=== PATIENT | male | born 1960 | race Caucasian/White ===

== ENCOUNTER 2017-03-21 20:20 | Observation (INO) | payer SELFPAY ==
[2017-03-21] MEDS ORDERED: NITROGLYCERIN OINT 1 INCH/GM PACKET TOPICAL STA (20:40)
[2017-03-21] MEDS ORDERED: ASPIRIN 81 MG PO STA (20:40)
--- NOTE | 2017-03-21 20:43 | ED ---
General Adult HPI - General Source: patient, RN notes reviewed Mode of arrival: wheelchair Limitations: no limitations <Robb Valdivia - Last Filed: 03/21/17 20:54> <Robb Arthur - Last Filed: 03/21/17 23:39> - General Chief complaint: Chest Pain Stated complaint: chest & arm pain Time Seen by Provider: 03/21/17 20:20 - History of Present Illness Initial comments: This a 56-year-old male who has a past medical history significant for smoking. Patient does not have any history of diabetes high cholesterol or high blood pressure however the patient never go see a physician. Patient comes in today because he started having chest pain this morning at 8:00 is been intermittent ever signs per patient states the pain radiates into his left arm. Patient states he's had some shortness of breath but there has been no sweating no nausea. 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 Patient states currently the pain is only very minimal. Patient denies any lightheadedness dizziness or near syncopal episode. Patient denied any palpitations. Patient denied abdominal pain patient denies nausea vomiting diarrhea. Patient denies any recent history of fever chills or cough. Patient denied any leg swelling or calf pain. (Robb Valdivia) - Related Data Home Medications Medication Instructions Recorded Confirmed Acetaminophen-Codeine 300-30mg 1 tab PO HS 03/21/17 03/21/17 [Tylenol #3] Vit C/E/Zn/Coppr/Lutein/Zeaxan 1 cap PO HS 03/21/17 03/21/17 [Preservision Areds 2 Softgel] Allergies Allergy/AdvReac Type Severity Reaction Status Date / Time No Known Allergies Allergy Verified 03/21/17 20:49 Review of Systems ROS Other: All systems not noted in ROS Statement are negative. <Robb Valdivia - Last Filed: 03/21/17 20:54> ROS Other: All systems not noted in ROS Statement are negative. <Robb Arthur - Last Filed: 03/21/17 23:39> ROS Statement: Those systems with pertinent positive or pertinent negative responses have been documented in the HPI. Past Medical History Past Medical History: No Reported History History of Any Multi-Drug Resistant Organisms: None Reported Past Surgical History: Orthopedic Surgery Past Psychological History: No Psychological Hx Reported Smoking Status: Current every day smoker Past Alcohol Use History: None Reported Past Drug Use History: None Reported <Robb Valdivia - Last Filed: 03/21/17 20:54> General Exam Limitations: no limitations <Robb Valdivia - Last Filed: 03/21/17 20:54> General appearance: alert, in no apparent distress Head exam: Present: atraumatic, normocephalic, normal inspection Eye exam: Present: normal appearance, PERRL, EOMI. Absent: scleral icterus, conjunctival injection, periorbital swelling ENT exam: Present: normal exam, mucous membranes moist Neck exam: Present: normal inspection. Absent: tenderness, meningismus, lymphadenopathy Respiratory exam: Present: normal lung sounds bilaterally. Absent: respiratory distress, wheezes, rales, rhonchi, stridor Cardiovascular Exam: Present: regular rate, normal rhythm, normal heart sounds. Absent: systolic murmur, diastolic murmur, rubs, gallop, clicks GI/Abdominal exam: Present: soft, normal bowel sounds. Absent: distended, tenderness, guarding, rebound, rigid Extremities exam: Present: normal inspection, full ROM, normal capillary refill. Absent: tenderness, pedal edema, joint swelling, calf tenderness Back exam: Present: normal inspection Neurological exam: Present: alert, oriented X3, CN II-XII intact Psychiatric exam: Present: normal affect, normal mood Skin exam: Present: warm, dry, intact, normal color. Absent: rash <Robb Arthur - Last Filed: 03/21/17 23:39> - General Exam Comments Initial Comments: GENERAL: Patient is well-developed and well-nourished. Patient is nontoxic and well- hydrated and is in mild distress. ENT: Neck is soft and supple. No significant lymphadenopathy is noted. Oropharynx is clear. Moist mucous membranes. Neck has full range of motion without eliciting any pain. EYES: The sclera were anicteric and conjunctiva were pink and moist. Extraocular movements were intact and pupils were equal round and reactive to light. Eyelids were unremarkable. PULMONARY: Unlabored respirations. Good breath sounds bilaterally. No audible rales rhonchi or wheezing was noted. CARDIOVASCULAR: There is a regular rate and rhythm without any murmurs gallops or rubs. ABDOMEN: Soft and nontender with normal bowel sounds. No palpable organomegaly was noted. There is no palpable pulsatile mass. SKIN: Skin is clear with no lesions or rashes and otherwise unremarkable. NEUROLOGIC: Patient is alert and oriented x3. Cranial nerves II through XII are grossly intact. Motor and sensory are also intact. Normal speech, volume and content. Symmetrical smile. MUSCULOSKELETAL: Normal extremities with adequate strength and full range of motion. No lower extremity swelling or edema. No calf tenderness. LYMPHATICS: No significant lymphadenopathy is noted PSYCHIATRIC: Normal psychiatric evaluation. Normal interpersonal interactions appears functionally intact in deals appropriately with others. No signs of depression. No signs of anxiety. (Robb Valdivia) Course <Robb Valdivia - Last Filed: 03/21/17 20:54> <Robb Arthur - Last Filed: 03/21/17 23:39> Vital Signs 03/21/17 03/21/17 03/21/17 20:22 21:04 23:02 Temperature 98.5 F Pulse Rate 86 60 57 L Respiratory 20 18 16 Rate Blood Pressure 138/93 149/86 109/77 O2 Sat by Pulse 93 L 96 98 Oximetry - Reevaluation(s) Reevaluation #1: 03/21/17 23:38 Patient still with episodic chest at this time although much better than when he arrived in emergency room (Robb Arthur) Medical Decision Making <Robb Valdviia - Last Filed: 03/21/17 20:54> - Lab Data Result diagrams: 03/21/17 20:49 03/21/17 20:49 - Radiology Data Radiology results: report reviewed (Chest x-ray is negative for acute disease), image reviewed <Robb Arthur - Last Filed: 03/21/17 23:39> - Medical Decision Making EKG shows normal sinus rhythm at 67 bpm DE interval is on a 36 QRS is 88 QT interval 42 QTC is 424. Patient's EKG shows no ST segment elevation or depression or T wave normalities are noted Dr. Arthur will be taking over the care of this patient at 9 PM (Robb Valdivia) 56 male to ER for evaluation. Patient does today for evaluation regarding chest pain. Patient has been continued episodic chest pain here now. Patient be admitted for cardiac observation and anticoagulation Ceil troponins (Robb Arthur) - Lab Data Lab Results 03/21/17 03/21/17 03/21/17 Range/Units 20:49 20:49 20:49 WBC 7.5 (3.8-10.6) k/uL RBC 4.53 (4.30-5.90) m/uL Hgb 13.3 (13.0-17.5) gm/dL Hct 40.6 (39.0-53.0) % MCV 89.5 (80.0-100.0) fL MCH 29.3 (25.0-35.0) pg MCHC 32.7 (31.0-37.0) g/dL RDW 13.7 (11.5-15.5) % Plt Count 255 (150-450) k/uL Neutrophils % 62 % Lymphocytes % 29 % Monocytes % 6 % Eosinophils % 2 % Basophils % 0 % Neutrophils # 4.7 (1.3-7.7) k/uL Lymphocytes # 2.2 (1.0-4.8) k/uL Monocytes # 0.4 (0-1.0) k/uL Eosinophils # 0.1 (0-0.7) k/uL Basophils # 0.0 (0-0.2) k/uL PT (9.0-12.0) sec INR (<1.2) APTT (22.0-30.0) sec Sodium 137 (137-145) mmol/L Potassium 4.2 (3.5-5.1) mmol/L Chloride 103 (98-107) mmol/L Carbon Dioxide 24 (22-30) mmol/L Anion Gap 10 mmol/L BUN 17 (9-20) mg/dL Creatinine 0.90 (0.66-1.25) mg/dL Est GFR (MDRD) Af Amer >60 (>60 ml/min/1.73 sqM) Est GFR (MDRD) Non-Af >60 (>60 ml/min/1.73 sqM) Glucose 85 (74-99) mg/dL Calcium 9.4 (8.4-10.2) mg/dL Magnesium 2.2 (1.6-2.3) mg/dL Total Bilirubin 0.6 (0.2-1.3) mg/dL AST 26 (17-59) U/L ALT 33 (21-72) U/L Alkaline Phosphatase 71 (38-126) U/L Total Creatine Kinase 284 H (55-170) U/L CK-MB (CK-2) 4.7 H* (0.0-2.4) ng/mL CK-MB (CK-2) Rel Index 1.7 Troponin I <0.012 (0.000-0.034) ng/mL Total Protein 7.1 (6.3-8.2) g/dL Albumin 4.3 (3.5-5.0) g/dL 03/21/17 Range/Units 20:49 WBC (3.8-10.6) k/uL RBC (4.30-5.90) m/uL Hgb (13.0-17.5) gm/dL Hct (39.0-53.0) % MCV (80.0-100.0) fL MCH (25.0-35.0) pg MCHC (31.0-37.0) g/dL RDW (11.5-15.5) % Plt Count (150-450) k/uL Neutrophils % % Lymphocytes % % Monocytes % % Eosinophils % % Basophils % % Neutrophils # (1.3-7.7) k/uL Lymphocytes # (1.0-4.8) k/uL Monocytes # (0-1.0) k/uL Eosinophils # (0-0.7) k/uL Basophils # (0-0.2) k/uL PT 10.6 (9.0-12.0) sec INR 1.1 (<1.2) APTT 24.7 (22.0-30.0) sec Sodium (137-145) mmol/L Potassium (3.5-5.1) mmol/L Chloride (98-107) mmol/L Carbon Dioxide (22-30) mmol/L Anion Gap mmol/L BUN (9-20) mg/dL Creatinine (0.66-1.25) mg/dL Est GFR (MDRD) Af Amer (>60 ml/min/1.73 sqM) Est GFR (MDRD) Non-Af (>60 ml/min/1.73 sqM) Glucose (74-99) mg/dL Calcium (8.4-10.2) mg/dL Magnesium (1.6-2.3) mg/dL Total Bilirubin (0.2-1.3) mg/dL AST (17-59) U/L ALT (21-72) U/L Alkaline Phosphatase (38-126) U/L Total Creatine Kinase (55-170) U/L CK-MB (CK-2) (0.0-2.4) ng/mL CK-MB (CK-2) Rel Index Troponin I (0.000-0.034) ng/mL Total Protein (6.3-8.2) g/dL Albumin (3.5-5.0) g/dL Critical Care Time Critical Care Time: Yes Total Critical Care Time: 31 <Robb Arthur - Last Filed: 03/21/17 23:39> Disposition <Robb Valdivia - Last Filed: 03/21/17 20:54> <Robb Arthur - Last Filed: 03/21/17 23:39> Clinical Impression: Chest pain Disposition: ADMITTED IP TO THIS HOSP Condition: Undetermined Instructions: Chest Pain (ED) Referrals: None,Stated [Primary Care Provider] - 1-2 days
[2017-03-21 21:03] LABS: Basophils % (A) 0 %; CH 30.5; CHCM 34.3; Eosinophils # (A) 0.1 k/uL (0-0.7); Eosinophils % (A) 2 %; HCT 40.6 % (39.0-53.0); HDW 2.33; HGB 13.3 gm/dL (13.0-17.5); INR 1.1 (<1.2); Luc # (Auto) 0.15; Luc % (Auto) 2; Lymphocytes # (A) 2.2 k/uL (1.0-4.8); Lymphocytes % (A) 29 %; MCH 29.3 pg (25.0-35.0); MCHC 32.7 g/dL (31.0-37.0); MCV 89.5 fL (80.0-100.0); Monocytes # (A) 0.4 k/uL (0-1.0); Monocytes % (A) 6 %; Neutrophils # (A) 4.7 k/uL (1.3-7.7); Neutrophils % (A) 62 %; Partial Thromboplastin Time 24.7 sec (22.0-30.0); Prothrombin Time 10.6 sec (9.0-12.0); RBC 4.53 m/uL (4.30-5.90); RDW 13.7 % (11.5-15.5); WBC 7.5 k/uL (3.8-10.6); WBC (Perox) 7.24
[2017-03-21 21:11] LABS: ALT 33 U/L (21-72); AST 26 U/L (17-59); Alkaline Phosphatase 71 U/L (38-126); Anion Gap 10 mmol/L; Blood Urea Nitrogen 17 mg/dL (9-20); Calcium 9.4 mg/dL (8.4-10.2); Carbon Dioxide 24 mmol/L (22-30); Chloride 103 mmol/L (98-107); Glucose 85 mg/dL (74-99); Magnesium 2.2 mg/dL (1.6-2.3); Non-African American GFR(MDRD) >60 (>60 ml/min/1.73 sqM); Potassium 4.2 mmol/L (3.5-5.1); Sodium 137 mmol/L (137-145); Total Bilirubin 0.6 mg/dL (0.2-1.3); Total Protein 7.1 g/dL (6.3-8.2)
--- NOTE | 2017-03-21 21:13 | XR ---
EXAMINATION TYPE: XR chest 2V DATE OF EXAM: 03/21/2017 COMPARISON: NONE HISTORY: Chest pain TECHNIQUE: Frontal and lateral views of the chest are obtained. FINDINGS: Heart and mediastinum are normal. Lungs are clear. Diaphragm is normal. There is spurring in the thoracic spine. Bony thorax is intact. There is no pleural effusion. There are chest leads. IMPRESSION: No active cardiopulmonary disease.
[2017-03-21 21:14] LABS: Creatine Kinase 284 U/L (55-170)
[2017-03-21 21:27] LABS: Troponin I <0.012 ng/mL (0.000-0.034)
[2017-03-21 21:29] LABS: Creatine Kinase MB 4.7 ng/mL (0.0-2.4)
[2017-03-21] MEDS ORDERED: MORPHINE SULFATE 10 MG/ML SYRINGE IV PRN (23:34)
[2017-03-21] MEDS ORDERED: HEPARIN SODIUM,PORCINE 5,000 UNIT/ML 1 ML VIAL IV PRN (23:34)
[2017-03-21] MEDS ORDERED: NITROGLYCERIN SL TABS 0.4 MG TAB SUBLINGUAL PRN (23:34)
[2017-03-21] MEDS ORDERED: HEPARIN SODIUM,PORCINE 5,000 UNIT/ML 1 ML VIAL IV ONE (23:34)
[2017-03-21] MEDS ORDERED: HEPARIN SODIUM,PORCINE/D5W PMX 25,000 UNIT in DEXTROSE/WATER 1 500ML.BAG IV SCH (23:45)
[2017-03-22 00:32] VITALS: BMI 25.7
[2017-03-22] MEDS ORDERED: NALOXONE 0.4 MG/ML 1 ML VIAL IV PRN (02:00)
[2017-03-22] MEDS ORDERED: ACETAMINOPHEN TAB 325 MG TAB PO PRN (02:00)
[2017-03-22] MEDS ORDERED: MORPHINE SULFATE 2 MG/ML SYRINGE IV PRN (02:00)
[2017-03-22 02:16] LABS: Creatine Kinase 259 U/L (55-170)
--- NOTE | 2017-03-22 02:16 | P.HPIM ---
History of Present Illness H&P Date: 03/22/17 Chief Complaint: Chest pain 56-year-old male with no significant past medical history presented to emergency department because of intermittent recurrent chest pain that has been happening all day today while he was at work. The pain felt like a sharp pain, located in the middle of the chest, lasting for a few seconds and resolving spontaneously. Patient works in construction smoothing tiles. He denies having any recent illness, no flulike symptoms. The pain is only associated with palpitations, no shortness of breath, no dizziness, no headaches, no radiation of the pain anywhere, no diaphoresis, no nausea or vomiting. Patient never had this type of pain in the past and was concerned about it so he presented to the emergency department. In the ER he did not have acute ST or acute changes and his troponins were negative. Subsequently he was admitted to observation for further evaluation and management. Review of Systems 12 points ROS performed, negative except for HPI Past Medical History Past Medical History: No Reported History, Osteoarthritis (OA) Additional Past Medical History / Comment(s): Chronic bilateral knees pain History of Any Multi-Drug Resistant Organisms: None Reported Past Surgical History: Orthopedic Surgery Additional Past Surgical History / Comment(s): edwina knee ACL and edwina rotator cuffs Past Anesthesia/Blood Transfusion Reactions: No Reported Reaction Past Psychological History: No Psychological Hx Reported Smoking Status: Current every day smoker Past Alcohol Use History: None Reported Past Drug Use History: None Reported - Past Family History Father Family Medical History: Cancer Additional Family Medical History / Comment(s): passed in his 30's Mother Family Medical History: Cancer, CVA/TIA Medications and Allergies Home Medications Medication Instructions Recorded Confirmed Type Acetaminophen-Codeine 300-30mg 1 tab PO HS 03/21/17 03/21/17 History [Tylenol #3] Vit C/E/Zn/Coppr/Lutein/Zeaxan 1 cap PO HS 03/21/17 03/21/17 History [Preservision Areds 2 Softgel] Allergies Allergy/AdvReac Type Severity Reaction Status Date / Time No Known Allergies Allergy Verified 03/21/17 20:49 Physical Exam Vitals: Vital Signs Temp Pulse Pulse Resp BP BP Pulse Ox 03/22/17 00:15 98.2 F 59 L 16 96/54 96 03/22/17 00:02 98.0 F 62 18 125/75 98 03/21/17 23:02 57 L 16 109/77 98 03/21/17 21:04 60 18 149/86 96 03/21/17 20:22 98.5 F 86 20 138/93 93 L Intake and Output 03/21/17 03/21/17 03/22/17 14:59 22:59 06:59 Other: Voiding Method Toilet # Voids 2 Weight 78.925 kg 78.925 kg Patient Weight 03/22/17 06:59 Weight 78.925 kg Constitutional: No acute distress, conversant, pleasant Eyes:Anicteric sclerae, moist conjunctiva, no lid-lag, PERRLA, ENMT: Oropharynx clear, no erythema, exudates Neck: Supple, FROM, no masses, or JVD, No carotid bruits, No thyromegaly Lungs: Clear to auscultation, Clear to percussion, Normal respiratory effort, no accessory muscle use Cardiovascular: Heart regular in rate and rhythm, No murmurs, gallops, or rubs, No peripheral edema Abdominal: Soft, Nontender, no guarding, rebound or rigidity, Normoactive bowel sounds, No hepatomegaly, No splenomegaly, No palpable mass Skin: Normal temperature, tone, texture, turgor, no induration, No subcutaneous nodules, No rash, lesions, No ulcers Extremities: No digital cyanosis, No clubbing, Pedal pulses intact and symmetrical, Radial pulses intact and symmetrical, No calf tenderness Psychiatric: Alert and oriented to person, place and time, appropriate affect, intact judgement Neuro: Muscles Strength 5/5 in all 4 extremities, Sensation to light touch grossly present throughout, Cranial nerves II-XII grossly intact, no focal sensory deficits Results CBC & Chem 7: 03/21/17 20:49 03/21/17 20:49 Labs: Abnormal Lab Results - Last 24 Hours (Table) 03/21/17 Range/Units 20:49 Total Creatine Kinase 284 H (55-170) U/L CK-MB (CK-2) 4.7 H* (0.0-2.4) ng/mL Thrombosis Risk Factor Assmnt - Choose All That Apply Each Factor Represents 1 point: Age 41-60 years Thrombosis Risk Factor Assessment Total Risk Factor Score: 1 Thrombosis Risk Factor Assessment Level: Low Risk Assessment and Plan Plan: 1 acute chest pain Unclear etiology Cycle troponins Started on heparin by emergency department, will repeat stat troponin now and discontinue if negative Aspirin 325 mg daily Pravastatin 80 mg daily Stress test, dobutamine exercise stress in a.m. #2 chronic knee pain Continue Tylenol with Codeine. #3 DVT prophylaxis Patient is ambulatory, not indicated
[2017-03-22 02:29] LABS: Troponin I <0.012 ng/mL (0.000-0.034)
[2017-03-22 02:31] LABS: Creatine Kinase MB 4.4 ng/mL (0.0-2.4)
[2017-03-22 07:53] LABS: Basophils % (A) 1 %; CH 30.4; CHCM 33.7; Eosinophils # (A) 0.2 k/uL (0-0.7); Eosinophils % (A) 4 %; HCT 42.2 % (39.0-53.0); HDW 2.31; HGB 13.3 gm/dL (13.0-17.5); Luc # (Auto) 0.07; Luc % (Auto) 2; Lymphocytes # (A) 1.5 k/uL (1.0-4.8); Lymphocytes % (A) 34 %; MCH 28.7 pg (25.0-35.0); MCHC 31.6 g/dL (31.0-37.0); MCV 90.8 fL (80.0-100.0); Monocytes # (A) 0.3 k/uL (0-1.0); Monocytes % (A) 7 %; Neutrophils # (A) 2.3 k/uL (1.3-7.7); Neutrophils % (A) 53 %; RBC 4.65 m/uL (4.30-5.90); WBC 4.4 k/uL (3.8-10.6)
--- NOTE | 2017-03-22 08:02 | P.CRDCN ---
History of Present Illness Consult date: 03/22/17 Consult reason: chest pain History of present illness: 56-year-old gentleman with no significant past medical history who has had some chronic back pain and takes Tylenol No. 3 comes in complaining of chest pain he describes it as a sharp precordial pain that came on at rest unrelated to exertion and unassociated with diaphoresis. He also had vague left arm discomfort with that. This came at work her came to hospital and gradually the pain had subsided. There was no clear response to sublingual nitroglycerin. At the time of my evaluation this morning his pain-free and hemodynamically stable. I talked to him about his treatment options he opted to undergo a stress echo and if there is ischemia consider cardiac catheterization. Cardiac enzymes so far have been negative. Review of Systems Constitutional: Denies chills. Denies fever. Eyes: Denies blurred vision. Denies pain. Ears, nose, mouth and throat: Denies headache. Denies sore throat. Cardiovascular: has chest pain. Denies shortness of breath. Respiratory: Denies cough. Gastrointestinal: Denies abdominal pain. Denies diarrhea. Denies nausea. Denies vomiting. Musculoskeletal: Denies myalgias. Integumentary: Denies pruritus. Denies rash. Neurological: Denies numbness. Denies weakness. Psychiatric: Denies anxiety. Denies depression. Endocrine: Denies fatigue. Denies weight change. Genitourinary: Denies burning, hematuria, frequency of urination. Hematological: No anemia or excess bleeding. Past Medical History Past Medical History: No Reported History, Osteoarthritis (OA) Additional Past Medical History / Comment(s): Chronic bilateral knees pain History of Any Multi-Drug Resistant Organisms: None Reported Past Surgical History: Orthopedic Surgery Additional Past Surgical History / Comment(s): edwian knee ACL and edwina rotator cuffs Past Anesthesia/Blood Transfusion Reactions: No Reported Reaction Past Psychological History: No Psychological Hx Reported Smoking Status: Current every day smoker Past Alcohol Use History: None Reported Past Drug Use History: None Reported - Past Family History Father Family Medical History: Cancer Additional Family Medical History / Comment(s): passed in his 30's Mother Family Medical History: Cancer, CVA/TIA Medications and Allergies Home Medications Medication Instructions Recorded Confirmed Type Acetaminophen-Codeine 300-30mg 1 tab PO HS 03/21/17 03/21/17 History [Tylenol #3] Vit C/E/Zn/Coppr/Lutein/Zeaxan 1 cap PO HS 03/21/17 03/21/17 History [Preservision Areds 2 Softgel] Allergies Allergy/AdvReac Type Severity Reaction Status Date / Time No Known Allergies Allergy Verified 03/21/17 20:49 Physical Exam Vitals: Vital Signs Temp Pulse Pulse Resp BP BP Pulse Ox 03/22/17 04:00 98.4 F 50 L 16 119/63 96 03/22/17 00:15 98.2 F 59 L 16 96/54 96 03/22/17 00:02 98.0 F 62 18 125/75 98 03/21/17 23:02 57 L 16 109/77 98 03/21/17 21:04 60 18 149/86 96 03/21/17 20:22 98.5 F 86 20 138/93 93 L Intake and Output 03/21/17 03/22/17 03/22/17 22:59 06:59 14:59 Other: Voiding Method Toilet # Voids 3 Weight 78.925 kg 78.925 kg Results 03/22/17 07:33 03/21/17 20:49 Cardiac Enzymes 03/21/17 03/21/17 03/22/17 Range/Units 20:49 20:49 01:38 AST 26 (17-59) U/L CK-MB (CK-2) 4.7 H* 4.4 H* (0.0-2.4) ng/mL Troponin I <0.012 <0.012 (0.000-0.034) ng/mL Coagulation 03/21/17 Range/Units 20:49 PT 10.6 (9.0-12.0) sec APTT 24.7 (22.0-30.0) sec CBC 03/21/17 03/22/17 Range/Units 20:49 07:33 WBC 7.5 4.4 (3.8-10.6) k/uL RBC 4.53 4.65 (4.30-5.90) m/uL Hgb 13.3 13.3 (13.0-17.5) gm/dL Hct 40.6 42.2 (39.0-53.0) % Plt Count 255 261 (150-450) k/uL Comprehensive Metabolic Panel 03/21/17 Range/Units 20:49 Sodium 137 (137-145) mmol/L Potassium 4.2 (3.5-5.1) mmol/L Chloride 103 (98-107) mmol/L Carbon Dioxide 24 (22-30) mmol/L BUN 17 (9-20) mg/dL Creatinine 0.90 (0.66-1.25) mg/dL Glucose 85 (74-99) mg/dL Calcium 9.4 (8.4-10.2) mg/dL AST 26 (17-59) U/L ALT 33 (21-72) U/L Alkaline Phosphatase 71 (38-126) U/L Total Protein 7.1 (6.3-8.2) g/dL Albumin 4.3 (3.5-5.0) g/dL Current Medications Generic Name Dose Route Start Last Admin Trade Name Freq PRN Reason Stop Dose Admin Acetaminophen 650 mg 03/22/17 02:00 Tylenol Tab PO Q6HR PRN Mild Pain or Fever > 100.5 Aspirin 325 mg 03/22/17 09:00 Aspirin PO DAILY [facility] Atorvastatin Calcium 80 mg 03/22/17 09:00 Lipitor PO DAILY [facility] Morphine Sulfate 4 mg 03/21/17 23:34 Morphine Sulfate (Inj) IV Q5M PRN Chest Pain Morphine Sulfate 2 mg 03/22/17 02:00 Morphine Sulfate (Inj) IV Q4HR PRN Severe Pain Naloxone HCl 0.2 mg 03/22/17 02:00 Narcan IV Q2M PRN Opioid Reversal Nitroglycerin 0.4 mg 03/21/17 23:34 Nitrostat SUBLINGUAL Q5M PRN Chest Pain Intake and Output 03/21/17 03/22/17 03/22/17 22:59 06:59 14:59 Other: Voiding Method Toilet # Voids 3 Weight 78.925 kg 78.925 kg 03/22/17 07:33 03/21/17 20:49 EKG Interpretations (text) Normal sinus rhythm and within normal limits Assessment and Plan Plan: Chest pain rule out CAD Patient will undergo a stress echo today if this is abnormal I will do cardiac catheterization if not he'll be discharged home Chronic smoking I advised the patient to quit smoking
[2017-03-22 08:04] LABS: ALT 31 U/L (21-72); AST 23 U/L (17-59); Alkaline Phosphatase 62 U/L (38-126); Anion Gap 10 mmol/L; Blood Urea Nitrogen 16 mg/dL (9-20); Calcium 9.1 mg/dL (8.4-10.2); Carbon Dioxide 25 mmol/L (22-30); Chloride 105 mmol/L (98-107); Cholesterol 131 mg/dL (<200); Glucose 81 mg/dL (74-99); HDL Cholesterol 52 mg/dL (40-60); Non-African American GFR(MDRD) >60 (>60 ml/min/1.73 sqM); Potassium 4.5 mmol/L (3.5-5.1); Sodium 140 mmol/L (137-145); Total Bilirubin 0.6 mg/dL (0.2-1.3); Total Protein 6.6 g/dL (6.3-8.2)
[2017-03-22 08:17] LABS: Creatine Kinase 225 U/L (55-170)
[2017-03-22 08:29] VITALS: RESP 18; TEMP 97.8
[2017-03-22 08:31] LABS: Troponin I <0.012 ng/mL (0.000-0.034)
[2017-03-22 08:41] LABS: Creatine Kinase MB 3.7 ng/mL (0.0-2.4)
[2017-03-22] MEDS ORDERED: ATORVASTATIN 80 MG TAB PO SCH (09:00)
[2017-03-22] MEDS ORDERED: ASPIRIN 325 MG TAB PO SCH (09:00)
--- NOTE | 2017-03-22 09:08 | ECHOS ---
STRESS ECHOCARDIOGRAM INDICATIONS: Chest pain. MEDICATIONS:: Acetaminophen, vitamin E, C, Zinc, Copper, Lutein BASELINE HEART RATE: 56 BASELINE BLOOD PRESSURE: 111/68 MAXIMUM HEART RATE: 151 MAXIMUM BLOOD PRESSURE: 153/76 85% MPHR: 141 100% MPHR: 166 METS: 11.1 MAXIMUM STAGE REACHED: 4 TOTAL EXERCISE TIME: 9:42 CLINICAL INFORMATION: Baseline EKG shows sinus rhythm, normal axis, normal intervals. Patient exercised on Prateek protocol for a total of 9-1/2 minutes achieving 11 METS, 85% of predicted maximal heart rate without chest pain or diagnostic ST-segment depression. Baseline echo shows normal left ventricular size, wall motion and systolic function. Postexercise, there is normal hyperdynamic response of all segments of myocardium noted. CONCLUSION: 1. Excellent exercise tolerance. 2. Negative stress test by EKG criteria. 3. Negative stress echo. ARCELIA / ROSALINA: [id number] /
[2017-03-22 11:48] VITALS: BP 108/72; PULSE 55
--- NOTE | 2017-03-22 11:51 | P.DS ---
Providers Date of admission: 03/21/17 23:38 Expected date of discharge: 03/22/17 Attending physician: Rocky Lewis MD Consults: 03/21/17 23:34 Consult Physician Urgent Consulting Provider: Aimee Brunson Consult Reason/Comments: cp Do you want consulting provider notified?: Yes Primary care physician: Stated None - Discharge Diagnosis(es) (1) Chest pain Current Visit: Yes Status: Acute (2) Smoking Current Visit: Yes Status: Acute Hospital Course: The patient is a 56-year-old male with a past medical history of smoking that was admitted for chest pain to rule out acute coronary syndrome his initial EKG and serial troponins are negative for any acute ischemia, the patient only had mild risk factors being age and history of smoking. He was started on aspirin statin therapy and heparin from the ER. The patient had a stress echocardiogram that was otherwise unremarkable actually showed pretty good exercise tolerance. Cardiology has been consulted from the ER and was in agreement that the patient could be discharged home safely with a negative stress echocardiogram, patient had been counseled regarding his smoking cessation but does not appear ready to try at this time. He was subsequently discharged home in stable condition and instructed to follow-up with his PCP. This discharge process took less than 30 minutes Patient Condition at Discharge: Stable Plan - Discharge Summary New Discharge Prescriptions: No Action Vit C/E/Zn/Coppr/Lutein/Zeaxan [Preservision Areds 2 Softgel] 1 cap PO HS Acetaminophen-Codeine 300-30mg [Tylenol #3] 1 tab PO HS Discharge Medication List Acetaminophen-Codeine 300-30mg [Tylenol #3] 1 tab PO HS 03/21/17 [History] Vit C/E/Zn/Coppr/Lutein/Zeaxan [Preservision Areds 2 Softgel] 1 cap PO HS [History] Follow up Appointment(s)/Referral(s): None,Stated [Primary Care Provider] - 1-2 days Vahid Mishra MD [STAFF PHYSICIAN] - 04/11/17 3:30 pm Patient Instructions/Handouts: Chest Pain (ED) Discharge Disposition: HOME SELF-CARE
== END 2017-03-22 12:12 | disposition home or self-care (01) ==
LOC: EC 20:20 → 3OBS 23:38
PROVIDERS: ADMIT Internal Medicine; ATTEND Internal Medicine
DX: R07.89 Other chest pain (principal); R07.2 Precordial pain; R00.2 Palpitations; R06.02 Shortness of breath; M79.602 Pain in left arm; M25.561 Pain in right knee; M25.562 Pain in left knee; G89.29 Other chronic pain; M54.9 Dorsalgia, unspecified; M19.90 Unspecified osteoarthritis, unspecified site; F17.200 Nicotine dependence, unspecified, uncomplicated; Z79.891 Long term (current) use of opiate analgesic; Z79.899 Other long term (current) drug therapy; Z80.9 Family history of malignant neoplasm, unspecified
CPT/HCPCS: 99291; 96376 ×2; 96365; 96366; 36415; 93005; 93017; 93350; 80061; 80053 ×2; 82550 ×2; 82553 ×2; 83735; 84484 ×2; 85025 ×2; 85610; 85730; 71020; G0378 ×2; J1644 ×2

== ENCOUNTER → 2020-01-19 | Outpatient (CLI) | payer BC | END | disposition home or self-care (01) | LOC: LABPAT 10:06 | PROVIDERS: ATTEND Orthopaedic Surgery | DX: Z01.812 Encounter for preprocedural laboratory examination (principal) | CPT/HCPCS: 87070 ==

== ENCOUNTER 2020-01-25 10:49 | Day surgery (SDC) | payer BC ==
[2020-01-18 11:11] VITALS: BMI 26.6
[~2020-01-25 10:49] MED LIST: ACETAMINOPHEN TAB 500 MG TAB PO ONE; MELOXICAM 7.5 MG TAB PO ONE; MIDAZOLAM 2 MG/2 ML VIAL IV PRN; ONDANSETRON 4 MG/2 ML VIAL IVP ONE; ROPIVACAINE 246.25 MG, EPINEPHrine 0.5 MG, KETOROLAC 30 MG, cloNIDine HCL/PF 80 MCG, WA... MISCELLANE ONE; TRANEXAMIC ACID 1,000 MG in SODIUM CHLORIDE 0.9% 100 ML IVPB ONE
[2020-01-25] MEDS ORDERED: ONDANSETRON 4 MG/2 ML VIAL ONE (11:02)
[2020-01-25] MEDS ORDERED: ACETAMINOPHEN TAB 500 MG TAB ONE (11:02)
[2020-01-25] MEDS: LACTATED RINGERS 1,000 ML IV SCH ×2 (11:24→18:04)
[2020-01-25] MEDS ORDERED: LIDOCAINE 1% (10MG/ML) FOR IV START INTRADERMA ONE (11:25)
[2020-01-25] MEDS ORDERED: DEXAMETHASONE SOD PHOSPHATE 10 MG/ML 1 ML VIAL IV ONE (11:43)
[2020-01-25] MEDS: fentaNYL (PF) 50 MCG/ML 2 ML AMP IV ONE ×2 (11:44→15:42)
[2020-01-25] MEDS ORDERED: MIDAZOLAM 2 MG/2 ML VIAL IV ONE (11:44)
--- NOTE | 2020-01-25 12:09 | P.ANPRN ---
Procedure Note - Anesthesia - Nerve Block Performed Left Adductor Canal Infusion Time Out Performed: Yes Date of Procedure: 01/25/20 Procedure Start Time: 11:48 Procedure Stop Time: 11:56 Location of Patient: PreOp Indication: Acute Post-Operative Pain, Requested by Surgeon Specifically requested for management of pain by DrVitaliy: Sean Klein Sedation Type: Sedate with meaningful contact maintained Preparation: Sterile Prep Position: Supine Catheter: Indwelling Needle Types: Pajunk Needle Gauge: 18 Ultrasound used to visualize needle placement: Yes Ultrasound used to observe medication spread: Yes Injectate: 0.5% Ropivacaine (see comment for volume) (30cc) Blood Aspirated: No Pain Paresthesia on Injection Noted: No Resistance on Injection: Normal Image Stored and Saved: Yes Events: Uneventful and Well Tolerated
[2020-01-25] MEDS ORDERED: PROPOFOL 10 MG/ML 20 ML VIAL IV ONE (12:23)
[2020-01-25] MEDS ORDERED: SODIUM CHLORIDE 0.9% 100 ML BAG ONE (12:23)
[2020-01-25] MEDS ORDERED: TRANEXAMIC ACID 1,000 MG/10 ML VIAL ONE (12:23)
[2020-01-25] MEDS ORDERED: MIDAZOLAM 2 MG/2 ML VIAL ONE (12:23)
[2020-01-25] MEDS ORDERED: SUCCINYLCHOLINE CHLORIDE 100 MG/5 ML SYR IV ONE (12:23)
[2020-01-25] MEDS ORDERED: fentaNYL (PF) 50 MCG/ML 2 ML AMP ONE (12:23)
[2020-01-25] MEDS ORDERED: ceFAZolin 1,000 MG in SODIUM CHLORIDE 0.9% 1,000 ML IRRIGATION ONE (13:04)
[2020-01-25] MEDS ORDERED: LACTATED RINGERS 1,000 ML IV ONE ×2 (14:17→17:18)
--- NOTE | 2020-01-25 14:26 | P.OP ---
Date of Procedure: 01/25/20 Procedure(s) Performed: PREOPERATIVE DIAGNOSIS: 1. Left knee severe osteoarthritis with genu varum; 2. Status post remote ACL reconstruction with metallic screw fixation POSTOPERATIVE DIAGNOSIS: 1. Left knee severe osteoarthritis with genu varum; 2. Status post remote ACL reconstruction with metallic screw fixation OPERATION: 1. Left knee cemented total replacement arthroplasty (metal on polyethylene); 2. Removal tibial ACL interference screw. ANESTHESIA: Spinal ESTIMATED BLOOD LOSS: 50 ml. STRAPPING MACHINE TENDER: Cleo Winchester PA-C (assistance with: patient positioning, retraction, exposure, hemostasis, leg positioning, implantation, irrigation, closure, dressing) COMPLICATIONS: None apparent. COMPONENTS IMPLANTED: Persona system from [employer] INDICATIONS: Kosta is a 59 year old male who is 30 years plus status post ACL reconstruction with BTB Autograft and metallic screw fixation. He presented with a history of severe left knee osteoarthritis. Conservative treatment has been tried and has been unsuccessful in controlling symptoms adequately. The operation of knee replacement has been discussed at length in the office, as well as potential risks and complications. These are inclusive of, but not limited to: bleeding, infection, scarring, discomfort, blood vessel and nerve damage, need for further surgery, failure to relieve symptoms, persistence, recurrence, or worsening of problems, loosening, dislocation, wear, blood clot, pulmonary embolism, , gait dysfunction, stiffness, and other risks as discussed in the office. The patient elects to proceed and the consent form has been signed. PROCEDURE: The patient was taken to the operating room and positioned on the operating room table in the supine position. Anesthesia was initiated. Care was taken to make sure that all pressure points were adequately padded. The operative lower extremity was prepped and draped in the usual aseptic fashion using ChloraPrep. Ioban drape was used for the case and the patient received intravenous antibiotics within one hour of the incision. A pneumotourniquet and leg bernal were used for the case. The limb was exsanguinated with an Esmarch bandage and the tourniquet was inflated to 300 mmHg. Time-out was called confirming the patient's identity, side, procedure and administration of antibiotics and tranexamic acid, 1 g IV. The incision was then created midline directly over the knee, carried down through skin and into the subcutaneous tissues and down to fascia. Full thickness subcutaneous medial flap was developed. Medial parapatellar arthrotomy was performed and the interior of the knee was inspected. There was end-stage osteoarthritis of the knee with a mild to moderate genu varum type deformity. The fat pad was excised and proximal medial release on the tibia was completed using meticulous dissection and a curved osteotome. The anterior cruciate ligament was taken down. Note was made of significant attrition of the anterior and significant degenerative appearance of the posterior cruciate ligaments. The exposure was excellent. Tibial interference screw was noted protruding slightly from the anteromedial surface of the proximal tibia, in the zone of exposure. The bone around the screwdriver hole was removed carefully using a small osteotome and the universal screw extractor set was used to find a screwdriver that fit the hex head necessary to remove the screw. The screw was then backed out without problem. The knee was flexed 90 degrees and the patella was everted. A spot was chosen on the femur approximately 1 cm anterior to the posterior cruciate ligament insertion and an intramedullary hole was created within the femur. The intramedullary guide was then set to 5 degrees of valgus. The distal cutting block was attached and pinned into position. An appropriate amount of distal femoral resection was set. The oscillating saw was then used to make the distal femoral cut. This cut was confirmed to be flat with the flat end of an osteotome. The retractors were placed around the tibia and the tibial surface was addressed. The angle and depth of resection was adjusted using an extramedullary cutting guide. The guide had a built-in 3 degree posterior slope cut. Once the cutting guide was adjusted appropriately and in line with the axis of the tibia and confirmed to be in good position in relation to the second metatarsal and transmalleolar axis, the tibial cut was then created with protection of the posterior neurovascular structures and the collateral ligaments. The tibial cut surface was removed and sized. Femoral sizing was then accomplished using anterior referencing. Care was taken to analyze the posterior condyles for signs of deficiency or severe wear, and adjustments to the guide were made, as appropriate. 3 degree external rotation pins were placed. The cutting jig for the femur was applied to these pins. The planned cuts were further analyzed prior to performing them with the oscillating saw. No femoral notching was produced. Bone fragments were removed and the cut surfaces were finished, as necessary, with a reciprocating saw. Spacer block technique was then used to confirm that the flexion and extension gaps were equal. Soft tissue releases and adjustment of the tibial and/or fem oral cuts were made, as necessary, until the gaps were equal. This included release of the posterior cruciate ligament, which was tight in this patient. The femur was then further finished for a posterior cruciate ligament substituting component. Patellar resurfacing was performed using a reamer. The size of the required patellar component was estimated and the patellar surface was then reamed down to a residual thickness which would recreate the [place] thickness with the component. The exact placement of the patellar component was adjusted for position based on preoperative x-rays and intraoperative findings. Prior to placing trial components, anesthetic solution consisting of ropivicaine with epinephrine, ketorolac, and clonidine was injected carefully and methodically in a grid pattern using aspiration technique into the soft tissue around the knee circumferentially, starting with the deeper tissues first and progressing to fascia, and then finally the skin/subcutaneous tissue. Particular care was taken when injecting the posterior capsule. The trial components were inserted. The tibial tray was allowed to self center and the patella was noted to track very well. The position of the tibial component was marked and the tibia was then finished for a stemmed tibial component. Cement was mixed on the back table and applied to the final components. Trial components were removed and the cut surfaces of the bone were pulse lavaged thoroughly and dried. Cement was then applied to the tibial surface and pressurized into the surface using finger pressurization technique. Extrusion of cement through the ACL tunnel was prevented with manual pressure over the entry site. The tibial component was then applied and excess cement was removed after it was impacted securely and noted to be flush with the cut surface. In similar fashion, the cement was applied to the cut femoral surface, pressurized in using finger pressurization and the component was impacted into place. Excess cement was removed. The polyethylene spacer was then implanted and locked into position. The patellar component was then applied in similar technique and a patellar clamp was used to hold the patella in place as the cement hardened. Once the cement had fully hardened, the knee was reinspected. Any other cement extrusion was removed and final kinematic testing showed range of motion from 0 to 130 degrees with excellent stability, both medially and laterally and appropriate alignment of the leg. Patellar tracking was excellent. The knee was then thoroughly pulse lavaged with normal saline. The tourniquet was deflated and hemostasis was obtained with electrocautery and IV tranexamic acid, 1 g given prior to inflation of the tourniquet and another gram given at the time of closure. Closure was with #2 Ethibond in the fascia and supplemented with #2 Quill, 2-0 Vicryl suture was used for the subcutaneous tissues and 3-0 Quill for the skin. Dermabond/Steri-Strips were then applied. A lightly compressive dressing was applied using Webril and an Octavio wrap. The patient was then transferred to [facility] and taken to the recovery room in stable condition. Sponge and needle counts were correct.
[2020-01-25] MEDS ORDERED: ROPIVACAINE 0.2%-NS ON-Q PUMP 1,090 MG, EMPTY PAIN BALL 1 EACH MISCELLANE PRN (14:46)
[2020-01-25] MEDS ORDERED: NALOXONE 0.4 MG/ML 1 ML VIAL IV PRN (14:53)
[2020-01-25] MEDS ORDERED: HYDROmorphone 0.5 MG/0.5 ML SYRINGE IVP PRN ×2 (14:53)
[2020-01-25] MEDS ORDERED: MAGNESIUM HYDROXIDE 2,400 MG/10 ML CUP PO PRN (14:53)
[2020-01-25] MEDS ORDERED: HYDROmorphone 1 MG/ML 1 ML SYRINGE IVP PRN (14:53)
[2020-01-25] MEDS ORDERED: bisacodyL 10 MG SUPP RECTAL PRN (14:53)
[2020-01-25] MEDS ORDERED: NA PHOS,M-B/NA PHOS,DI-BA 133 ML ENEMA RECTAL PRN (14:53)
[2020-01-25] MEDS ORDERED: hydrOXYzine pamoate 25 MG CAP PO PRN (14:53)
[2020-01-25] MEDS ORDERED: ONDANSETRON 4 MG/2 ML VIAL IVP PRN (14:53)
[2020-01-25] MEDS ORDERED: HYDROcodone/APAP 5-325MG 1 EACH TAB PO PRN (14:53)
[2020-01-25] MEDS: MEPERIDINE 50 MG/ML SYRINGE IVP ONE ×2 (14:56→15:02)
[2020-01-25] MEDS: HYDROmorphone 0.5 MG/0.5 ML SYRINGE IVP PRN ×3 (15:14→17:17)
--- NOTE | 2020-01-25 16:05 | XR ---
EXAMINATION TYPE: XR knee limited LT DATE OF EXAM: 01/25/2020 COMPARISON: NONE HISTORY: 59-year-old male evaluation for postoperative abnormality and alignment TECHNIQUE: 2 views FINDINGS: Images show placement of left total knee arthroplasty. Both distal femoral and proximal tibial compon ents of the prosthesis appear well seated without periprosthetic fracture. A screw from prior ACL gra ft reconstruction within the distal femur. Anterior soft tissue swelling with scattered soft tissue a ir as well as intra-articular air related to recent operation. IMPRESSION: Uncomplicated postoperative appearance left total knee arthroplasty.
[2020-01-25] MEDS: HYDROcodone/APAP 7.5-325MG 1 EACH TAB PO PRN (18:13)
[2020-01-25] MEDS ORDERED: SENNOSIDES-DOCUSATE SODIUM 1 EACH TAB PO SCH (21:00)
[2020-01-25] MEDS ORDERED: TEMAZEPAM 15 MG CAP PO PRN (22:00)
[2020-01-25] MEDS: ASPIRIN 81 MG PO SCH (22:03)
[2020-01-26] MEDS: HYDROcodone/APAP 7.5-325MG 1 EACH TAB PO PRN ×2 (00:53→08:27)
[2020-01-26 03:32] VITALS: TEMP 98.1
[2020-01-26] MEDS: LACTATED RINGERS 1,000 ML IV SCH ×2 (04:43)
[2020-01-26 07:31] VITALS: BP 119/64; PULSE 62; RESP 17
[2020-01-26 08:17] LABS: Basophils % (A) 0 %; Eosinophils # (A) 0.1 k/uL (0-0.7); Eosinophils % (A) 1 %; HCT 37.6 % (39.0-53.0); HGB 11.9 gm/dL (13.0-17.5); Lymphocytes % (A) 19 %; MCHC 31.6 g/dL (31.0-37.0); MCV 88.5 fL (80.0-100.0); Mean Platelet Volume 7.8; Monocytes # (A) 0.6 k/uL (0-1.0); Monocytes % (A) 6 %; Neutrophils # (A) 7.7 k/uL (1.3-7.7); Neutrophils % (A) 73 %; Platelet Count 244 k/uL (150-450); RBC 4.24 m/uL (4.30-5.90); RDW 12.9 % (11.5-15.5); WBC 10.5 k/uL (3.8-10.6)
--- NOTE | 2020-01-26 08:27 | P.DS ---
Providers Expected date of discharge: 01/26/20 Attending physician: Sean Klein Consults: 01/25/20 14:53 Consult Physician Routine Consulting Provider: Amy Ortiz Consult Reason/Comments: Medical management Do you want consulting provider notified?: Yes Primary care physician: Stated None - Discharge Diagnosis(es) (1) Primary localized osteoarthritis of left knee Current Visit: Yes Status: Acute (2) Status post total left knee replacement Current Visit: Yes Status: Acute Hospital Course: This is a 59-year-old male who was last seen with complaint of continued left knee pain. The patient has a known history of degenerative arthritis of the left knee and presents to discuss surgical options. After discussion and consideration the patient elects to proceed with total left knee arthroplasty. The patient is seen preoperatively by Dr. Mcguire and cleared for surgery. The patient is admitted to [facility] for total left knee arthroplasty. The procedures performed without complication or sequelae. He is doing well postoperatively. Vital signs are stable at discharge. Labs are stable at discharge. the patient is ambulating well with walker with minimal assistance. The patient is discharged to home on postop day #1 pending medical clearance. Please see orders and refer to the med rec for accurate list of medications. Plan - Discharge Summary Discharge Rx Participant: No New Discharge Prescriptions: New Aspirin [Adult Low Dose Aspirin EC] 81 mg PO BID #1 tablet. HYDROcodone/APAP 7.5-325MG [Hague 7.5-325] 1 - 2 tab PO Q4-6H PRN #50 tab PRN Reason: Pain Sennosides-Docusate Sodium [Senokot-S] 1 tab PO BID #60 tablet No Action HYDROcodone/APAP 5-325MG [Hague 5-325] 1 tab PO DAILY PRN PRN Reason: Pain Discharge Medication List HYDROcodone/APAP 5-325MG [Hague 5-325] 1 tab PO DAILY PRN 01/18/20 [History] Aspirin [Adult Low Dose Aspirin EC] 81 mg PO BID #1 tablet. 01/25/20 [Rx] HYDROcodone/APAP 7.5-325MG [Hague 7.5-325] 1 - 2 tab PO Q4-6H PRN #50 tab 01/25/20 [Rx] Sennosides-Docusate Sodium [Senokot-S] 1 tab PO BID #60 tablet 01/25/20 [Rx] Follow up Appointment(s)/Referral(s): Cleo Winchester, LEONARDA [PHYSICIAN GRAPHIC DESIGN INTERN] - 2 Weeks Activity/Diet/Wound Care/Special Instructions: Keep optifoam dressing intact 7-10 days. May shower. May bear wt as tolerated w walker. Discharge Disposition: HOME SELF-CARE
[2020-01-26] MEDS: ASPIRIN 81 MG PO SCH (08:28)
[2020-01-26] MEDS ORDERED: MELOXICAM 7.5 MG TAB PO SCH (09:00)
--- NOTE | 2020-01-26 13:24 | P.PN ---
Progress Note - Text 01/26/20 636am 59-year-old male status post total knee replacement by Dr. Klein. Patient has an On-Q pump for postop pain control, patient seen and evaluated this morning, patient has a VAS of 2 at rest. Plan to continue On-Q pump infusion
--- NOTE | 2020-01-26 13:25 | P.CONS ---
History of Present Illness - Reason for Consult Consult date: 01/26/20 medical management - Chief Complaint left knee OA - History of Present Illness 59 year old man with no medical co-morbidities presented for elective L knee arthoplasty. Pt reports no complaints at the time of my evaluation. 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 S/p operation with no complaints and mild blood loss. Review of Systems All Systems reviewed and pertinent positives and negatives noted in HPI, all other symptoms are negative Past Medical History Past Medical History: No Reported History, Osteoarthritis (OA) Additional Past Medical History / Comment(s): Chronic bilateral knees pain History of Any Multi-Drug Resistant Organisms: None Reported Past Surgical History: Orthopedic Surgery Additional Past Surgical History / Comment(s): edwina knee ACL and edwina rotator cuffs Past Anesthesia/Blood Transfusion Reactions: No Reported Reaction Past Psychological History: No Psychological Hx Reported Smoking Status: Current every day smoker Past Alcohol Use History: None Reported Additional Past Alcohol Use History / Comment(s): smoker 30years 1 ppd Past Drug Use History: None Reported - Past Family History Father Family Medical History: Cancer Additional Family Medical History / Comment(s): passed in his 30's Mother Family Medical History: Cancer, CVA/TIA Medications and Allergies Home Medications Medication Instructions Recorded Confirmed Type HYDROcodone/APAP 5-325MG [Burdett 1 tab PO DAILY PRN 01/18/20 01/25/20 History 5-325] Aspirin [Adult Low Dose Aspirin EC] 81 mg PO BID #1 tablet. 01/25/20 Rx HYDROcodone/APAP 7.5-325MG [Burdett 1 - 2 tab PO Q4-6H PRN #50 tab 01/25/20 Rx 7.5-325] Sennosides-Docusate Sodium 1 tab PO BID #60 tablet 01/25/20 Rx [Senokot-S] Allergies Allergy/AdvReac Type Severity Reaction Status Date / Time No Known Allergies Allergy Verified 01/25/20 11:04 Physical Exam Osteopathic Statement: *. No significant issues noted on an osteopathic structural exam other than those noted in the History and Physical/Consult. Vitals: Vital Signs Temp Pulse Pulse Resp BP BP Pulse Ox 01/26/20 07:30 98.1 F 62 17 119/64 98 01/26/20 01:30 98.1 F 69 20 116/67 95 01/25/20 19:35 97.6 F 98 20 117/67 96 01/25/20 17:42 97.6 F 89 18 132/76 99 01/25/20 17:00 90 18 119/69 97 01/25/20 16:31 86 18 118/68 98 01/25/20 16:16 90 18 112/63 98 01/25/20 16:01 94 16 122/66 98 01/25/20 15:46 86 16 114/65 97 01/25/20 15:16 86 16 114/64 96 01/25/20 15:01 76 18 132/75 99 01/25/20 14:50 96.8 F L 79 18 126/68 97 Intake and Output 01/25/20 01/26/20 01/26/20 22:59 06:59 14:59 Intake Total 1600 Balance 1600 Intake: IV 900 Oral 700 Other: # Voids 2 1 Weight 78.6 kg Gen: awake, alert HEENT: normocephalic, atraumatic, good hearing acuity, moist mucous membranes Resp: CTAB, good air exchange, no accessory muscle use, no wheezes, crackles, rhonchi CVS: good distal perfusion x 4, RRR, no murmurs, clicks, gallops GI: soft, NTTP, ND : no SPT, no CVAT, plaza catheter not present MSK: no pitting edema, no clubbing Neuro: non-focal, no sensory deficits, appropriate tone Psych: cooperative, euthymic mood Results CBC & Chem 7: 01/26/20 07:45 Labs: Abnormal Lab Results - Last 24 Hours (Table) 01/26/20 Range/Units 07:45 RBC 4.24 L (4.30-5.90) m/uL Hgb 11.9 L (13.0-17.5) gm/dL Hct 37.6 L (39.0-53.0) % Assessment and Plan Assessment: 1. Acute blood loss anemia as an expected consequence of surgery 2. Left knee arthroplasty next 59-year-old man with no medical conditions presenting for elective left knee arthroplasty and had a successful procedure without any complications, with a mild drop in hemoglobin as expected. Plan: Primary team could consider daily oral iron, however, blood count is likely to recover without intervention. Patient follow-up with his primary care doctor. Medically stable for discharge. Thank you for this consult, please call/page she have any further questions or concerns.
== END 2020-01-26 11:13 | disposition home or self-care (01) ==
LOC: OR 10:49 → 4SSUR 14:50 → OR 01-26 11:13
PROVIDERS: ATTEND Orthopaedic Surgery
DX: M17.12 Unilateral primary osteoarthritis, left knee (principal); M21.162 Varus deformity, not elsewhere classified, left knee; D62 Acute posthemorrhagic anemia; G89.29 Other chronic pain; F17.210 Nicotine dependence, cigarettes, uncomplicated; Z79.899 Other long term (current) drug therapy; Z98.890 Other specified postprocedural states; Z97.3 Presence of spectacles and contact lenses
CPT/HCPCS: 97110; 97161; 64448; 76942; 85025; 88300; 73560; 27447; C1713; C1776; J2250; J0171; J1100; J2175; J0690 ×3; J2405; J3010; J1885; J2795 ×2; J0735; J1170

== ENCOUNTER 2023-10-25 05:33 | Day surgery (SDC) | payer BC ==
[2023-10-21 15:03] VITALS: BMI 25.8
[2023-10-25] MEDS: LACTATED RINGERS 1,000 ML IV SCH (06:40)
[2023-10-25] MEDS ORDERED: ONDANSETRON 4 MG/2 ML VIAL ONE (06:41)
[2023-10-25] MEDS: DEXAMETHASONE SOD PHOSPHATE 4 MG/ML 1 ML VIAL IVP ONE (06:44)
[2023-10-25] MEDS: ONDANSETRON 4 MG/2 ML VIAL IVP ONE (06:45)
[2023-10-25] MEDS: MIDAZOLAM 2 MG/2 ML VIAL IVP ONE (06:53)
[2023-10-25] MEDS: fentaNYL (PF) 50 MCG/1 ML VIAL IVP ONE (06:54)
[2023-10-25] MEDS ORDERED: HYDROmorphone 0.5 MG/0.5 ML SYRINGE IVP PRN (07:00)
[2023-10-25] MEDS ORDERED: HYDROmorphone (PF) 1 MG/ML ONE (07:25)
[2023-10-25] MEDS ORDERED: SODIUM CHLORIDE 0.9% (PF) 10 ML VIAL ONE (07:25)
[2023-10-25] MEDS ORDERED: ePHEDrine 50 MG/ML 1 ML VIAL ONE (07:25)
[2023-10-25] MEDS ORDERED: PROPOFOL 10 MG/ML 20 ML VIAL IV ONE (07:25)
[2023-10-25] MEDS ORDERED: ROPIVACAINE 5 MG/ML 30 ML VIAL ONE (07:25)
[2023-10-25] MEDS ORDERED: LIDOCAINE 1% INJ 10MG/ML (20 ML MDV) ONE (07:25)
[2023-10-25] MEDS ORDERED: fentaNYL (PF) 50 MCG/ML 2 ML AMP ONE (07:25)
[2023-10-25] MEDS: ceFAZolin 1,000 MG in SODIUM CHLORIDE 0.9% 1,000 ML IRRIGATION ONE (07:56)
[2023-10-25] MEDS: LACTATED RINGERS 1,000 ML IV ONE (09:34)
--- NOTE | 2023-10-25 09:42 | P.ANPRN ---
Procedure Note - Anesthesia - Nerve Block Performed Left Popliteal Single Time Out Performed: Yes (0653) Date of Procedure: 10/25/23 Procedure Start Time: 06:54 Procedure Stop Time: 06:57 Location of Patient: PreOp Indication: Acute Post-Operative Pain, Requested by Surgeon Specifically requested for management of pain by DrVitaliy: Ankit Fry Sedation Type: Sedate with meaningful contact maintained Preparation: Sterile Prep Position: Right Lateral Catheter: None Needle Types: Pajunk Needle Gauge: 21 Ultrasound used to visualize needle placement: Yes Ultrasound used to observe medication spread: Yes Injectate: 0.5% Ropivacaine (see comment for volume) (20cc +10cc nacl pf) Blood Aspirated: No Pain Paresthesia on Injection Noted: No Resistance on Injection: Normal Image Stored and Saved: Yes Events: Uneventful and Well Tolerated
--- NOTE | 2023-10-25 09:43 | P.ANPRN ---
Procedure Note - Anesthesia - Nerve Block Performed Left Adductor Canal Single Time Out Performed: Yes (0653) Date of Procedure: 10/25/23 Procedure Start Time: 06:58 Procedure Stop Time: 07:01 Location of Patient: PreOp Indication: Acute Post-Operative Pain, Requested by Surgeon Specifically requested for management of pain by DrVitaliy: Ankit Fry Sedation Type: Sedate with meaningful contact maintained Preparation: Sterile Prep Position: Supine Catheter: None Needle Types: Pajunk Needle Gauge: 21 Ultrasound used to visualize needle placement: Yes Ultrasound used to observe medication spread: Yes Injectate: 0.5% Ropivacaine (see comment for volume) (20cc +10cc nacl pf) Blood Aspirated: No Pain Paresthesia on Injection Noted: No Resistance on Injection: Normal Image Stored and Saved: Yes Events: Uneventful and Well Tolerated
--- NOTE | 2023-10-25 10:09 | P.OP ---
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 Left ankle arthrodesis 2. Left subtalar joint arthrodesis Implants: Medline lateral tibiotalocalcaneal arthrodesis plate with locking and nonlocking screws Medline allograft Anesthesia: DAINAA Surgeon: Ankit Fry Estimated Blood Loss (ml): 10 Pathology: none sent Condition: stable Disposition: PACU Description of Procedure: Prior to the patient being brought to the operative room, anesthesia administered a nerve block and left lower extremity. The patient was brought into the operative room placed on table supine position. Timeout was taken to confirm correct patient identifiers, correct laterality of surgery, and correct procedure. Once all staff in the room were in agreement timeout the patient was induced and placed under general anesthesia. A well-padded tourniquet was placed the left thigh and the left leg was prepped and draped usual manner the left leg was exsanguinated, the knee flexed and then the tourniquet inflated to 250 mmHg. Attention directed over the lateral ankle where a linear incision was made down the midline of the fibula and extending to the lateral aspect of the calcaneus. Incision was deepened down to the saphenous tissue careful to identify, avoid, and retract any neurovascular structures and cauterize any bleeding vessels. Blunt dissection was carried down to level of the fibula. The soft tissue was incised both anteriorly and posteriorly along the fibula until the ankle joint was encountered. A sagittal saw was used to resect the fibula. The cut was made 3-5 cm proximal to the ankle joint. The cut was done with also the lateral bevel. Once the fibula was mobilized further soft tissue excision was done to free the fibula and removed from the surgical field. There is significant osteophytic formation on the lateral aspect of the tibia and talus. A combination of a Erasmo a sagittal saw were used to remove these osteophytes so that the surface was flat for the placement of the plate. Once that was completed pins were distractor placed in the talus and tibia to distract the ankle joint. A large wedge bur was then used to remove the articular cartilage and subchondral bone. Once adequate joint prepped was done, a 2.5 mm drill bit was used to aggressively fenestrate the conjoining surfaces of the ankle joint. The talar pin was then left in place and then a second pin was placed in the calcaneus. The distractor was then placed over the pins and used to distract the subtalar joint. A 4 mm wedge bur was then used to remove the articular cartilage and subchondral bone of the posterior facet of the talar joint. Once adequate joint preparation was completed, a 2.5 mm drill bit was used to fenestrate the conjoining surfaces of the subtalar arthrodesis site. All wounds were thoroughly irrigated with antibiotic saline. 10 mL of allograft was then placed into the arthrodesis segments. The lateral tibia talocalcaneal plate was positioned. Fluoroscopy was used to check the alignment. It was adjusted until was properly aligned. Then a wire was placed across the ankle and subtalar joints for temporary fixation. Threaded olive wires were used to tack the plate down temporarily. 3 locking screws were placed through the plate into the calcaneus. A non-locking screw was placed into the eccentric leg drill hole over the talus. A nonlocking screw was inserted and then tightened until it engaged the plate and compressed the arthrodesis site at the subtalar joint. One additional locking screw was placed through one of the holes in the plate for the talus. Then attention was directed to the more proximal aspect of the plate for the ankle arthrodesis. The centrically oriented hole in the proximal end of the plate was drilled acentrically for compression. A nonlocking screw was then placed and tightened until it engaged the plate and compressed ankle site. Drilling for a fully threaded interfragmentary compression screw was then done through the plate. The screw was inserted and advanced until engaged plate and provided further compression across the arthrodesis site. Fluoroscopic imaging showed the AP and lateral views of there was good compression across the arthrodesis sites and that the ankle and subtalar joints were 90 orientation of the tibia. All remaining holes in the plate were then filled with locking screws. Final fluoroscopic imaging showed proper placement of all hardware. There is maintain compression at the arthrodesis site. 90 orientation was maintained. The wound is then thoroughly irrigated with antibiotic saline. Deep closure was done with 0 Vicryl. Subcu closure done with 2-0 Vicryl. Skin closure done with gee. An Arthrex jumpstart dressing and a bulky dry dressing applied to the left ankle. Tourniquet was released capillary refill return to all digits on the left foot. Patient's placed a well-padded, well molded plaster posterior mold/sugar tong splint. Patient tolerated above proc edure and anesthesia well which recovery with vital signs stable
--- NOTE | 2023-10-25 10:23 | FL ---
EXAMINATION TYPE: FL guidance operating room, XR ankle complete LT Intraoperative/procedural fluorosc opic services were provided. Total fluoroscopy time is 47 seconds with a total of 3 submitted images to PACS. Please see the operative/procedural note for further details. DAP: 0.7773 Gycm2
[2023-10-25 10:30] VITALS: TEMP 97.6
[2023-10-25 11:27] VITALS: BP 106/66; PULSE 68; RESP 18
== END 2023-10-25 11:16 | disposition home or self-care (01) ==
LOC: OR 05:33
PROVIDERS: ATTEND Podiatrist
DX: M19.072 Primary osteoarthritis, left ankle and foot (principal); G89.18 Other acute postprocedural pain; N40.0 Benign prostatic hyperplasia without lower urinary tract symptoms; Z87.891 Personal history of nicotine dependence; Z79.899 Other long term (current) drug therapy
CPT/HCPCS: 28725; 64999; 64445; 73610; C1713; J2250; J1100; J0690 ×2; J2405; J2001; J3010 ×2; J1170; J2795; J2704

== ENCOUNTER → 2024-05-27 | Outpatient (CLI) | payer BC ==
--- NOTE | 2024-05-27 09:05 | MR ---
EXAMINATION TYPE: MR Prostate wo/w con DATE OF EXAM: 05/27/2024 6:50 AM COMPARISON: None. CLINICAL INDICATION: Male, 63 years old with history of R97.20 ELEVATED PSA; Elevated PSA. TECHNIQUE: Multi-planar, multi-sequence imaging of the pelvis is performed prior to and following the uncomplicated administration of bolus intravenous gadolinium. IV Contrast: 9 mL Gadobutrol Interpretive Criteria: PI-RADS v2.1 SERUM PSA: 10-24 = 8.39 4-2-24 = 7.27 SURGICAL PATHOLOGY: No data available. FINDINGS: Prostatic dimensions: 5.3 x 6.4 x 4.3 cm. Ellipsoid Volume:76.37 (PSA density=0.11 ng/mL/mL) CENTRAL GLAND (Central and Transition Zones/CZ+TZ): Multiple bilateral, heterogenous appearing hypertrophic stromal nodules, without suspicious lesion. M edian lobe hypertrophy with protrusion into the base of the bladder. (PI-RADS 2) PERIPHERAL ZONE (PZ): Low due to low T2/high DWI/low ADC signal with postcontrast enhancement within the left posterior lat eral peripheral gland mid gland/apex series 501 image 16 measuring 17 x 6 mm (PI-RADS 5) SEMINAL VESICLES (SV): Symmetric and unremarkable. PERIPROSTATIC TISSUES: Unremarkable. LYMPH NODES: No enlarged pelvic lymph node. REMAINING PELVIS: Bladder wall is within normal limits given distention. No abnormal free or organized intrapelvic fluid collection. No pathologic bowel dilation or mural thickening. No hernia visualized fatty changes to the inguinal canals. Bilateral hydroceles. OSSEOUS STRUCTURES: No suspicious osseous abnormality. IMPRESSION: 1. PI-RADS 5 lesion in left posterior lateral peripheral zone mid gland/apex measuring 17 x 6 mm. 2. Moderate BPH, estimated gland volume 76.37 mL. 3. No suspicious osseous lesion. No lymphadenopathy. No evidence of prostate adenocarcinoma involving the periprostatic tissues. 4. Small bilateral hydroceles. [facility], , 05/27/2024 9:03 AM
== END | disposition home or self-care (01) ==
LOC: RADMRIMAIN 05:42
PROVIDERS: ATTEND Urology
DX: N40.0 Benign prostatic hyperplasia without lower urinary tract symptoms (principal); N43.3 Hydrocele, unspecified; R97.20 Elevated prostate specific antigen [PSA]
CPT/HCPCS: 72197; A9585

== ENCOUNTER → 2024-06-25 | Outpatient (CLI) | payer BC ==
[2024-06-25 15:15] LABS: BUN/Creat Ratio 9.82 Ratio (12.00-20.00); Blood Urea Nitrogen 10.8 mg/dL (9.0-27.0); Calcium 9.2 mg/dL (8.7-10.3); Carbon Dioxide 20.7 mmol/L (21.6-31.8); Chloride 103 mmol/L (96-109); Glucose 108 mg/dL (70-110); Potassium 4.1 mmol/L (3.5-5.5); Sodium 135 mmol/L (135-145)
[2024-06-25 15:38] LABS: Basophils # (A) 0.06 X 10*3/uL (0.00-0.10); Eosinophils # (A) 0.11 X 10*3/uL (0.04-0.35); Eosinophils % (A) 1.8 %; HCT 46.9 % (39.6-50.0); HGB 15.7 g/dL (13.0-17.0); Lymphocytes # (A) 2.01 X 10*3/uL (0.90-5.00); Lymphocytes % (A) 32.2 %; MCH 28.1 pg (27.0-32.0); MCHC 33.5 g/dL (32.0-37.0); MCV 83.9 FL (80.0-97.0); Mean Platelet Volume 10.7 FL (9.5-12.2); Monocytes # (A) 0.48 X 10*3/uL (0.20-1.00); Monocytes % (A) 7.7 %; NRBC Per 100 WBC 0 X 10*3/uL (0.00-0.01); Neutrophils # (A) 3.56 X 10*3/uL (1.80-7.70); Neutrophils % (A) 56.8 %; Platelet Count 247 X 10*3/uL (140-440); RBC 5.59 X 10*6/uL (4.40-5.60); RDW 13.4 % (11.5-14.5); WBC 6.25 X 10*3/uL (4.50-10.00)
== END | disposition home or self-care (01) ==
LOC: LABWHC1 10:18
PROVIDERS: ATTEND Urology
DX: Z01.818 Encounter for other preprocedural examination (principal); R97.20 Elevated prostate specific antigen [PSA]
CPT/HCPCS: 36415; 80048; 85025

== ENCOUNTER 2024-07-02 13:09 | Day surgery (SDC) | payer BC ==
--- NOTE | 2024-06-30 20:58 | P.GSHP ---
History of Present Illness H&P Date: 06/30/24 Chief Complaint: Elevated PSA level The patient is a 64-year-old white male with a family history of prostate cancer (father and brother). His PSA level has been elevated for more than 1 year and was most recently 8.39. NGA revealed the prostate to be mildly enlarged, with right sided asymmetry but no nodularity. Prostate MRI reveals a prostate volume of 76.4 cc, with a PI-RADS 5 lesion noted within the left peripheral zone. - Genitourinary (Male) Genitourinary: Reports urinary frequency Past Medical History Past Medical History: Osteoarthritis (OA), Prostate Disorder Additional Past Medical History / Comment(s): Chronic bilateral knees pain, prostate enlargment History of Any Multi-Drug Resistant Organisms: None Reported Past Surgical History: Joint Replacement, Orthopedic Surgery Additional Past Surgical History / Comment(s): edwina knee ACL and edwina rotator cuffs, BILAT TKA, COLONOSCOPY Past Anesthesia/Blood Transfusion Reactions: No Reported Reaction Smoking Status: Former smoker - Past Family History Father Family Medical History: Cancer Additional Family Medical History / Comment(s): passed in his 30's Mother Family Medical History: Cancer, CVA/TIA Medications and Allergies Home Medications Medication Instructions Recorded Confirmed Type Ciprofloxacin HCl [Cipro] 500 mg PO BID 06/30/24 06/30/24 History Tamsulosin [Flomax] 1 tab PO HS 06/30/24 06/30/24 History Allergies Allergy/AdvReac Type Severity Reaction Status Date / Time acetaminophen [From [place]] Allergy Rash/Hives Verified 06/30/24 15:46 hydrocodone [From [place]] Allergy Rash/Hives Verified 06/30/24 15:46 Surgical - Exam - General well developed, well nourished, no distress - Respiratory normal respiratory effort - Genitourinary normal penis with no external lesions, testicles non-tender - Rectum Rectum: normal sphincter tone, no masses, other (Prostate moderately enlarged, no nodules, R>L) - Psychiatric oriented to time, oriented to person, oriented to place, speech is normal, memory intact Assessment and Plan (1) Elevated prostate specific antigen [PSA] Status: Acute Code(s): R97.20 - ELEVATED PROSTATE SPECIFIC ANTIGEN [PSA] SNOMED Code(s): 566966308 Plan: The patient will undergo MRI-Ultrasound fusion transrectal biopsies of the prostate. The procedure has been reviewed in detail with the patient. He has been made aware of potential risks, which include anesthesia, bleeding, and infection. He is also aware that a negative biopsy does not completely rule out prostate cancer.
[~2024-07-02 13:09] MED LIST changes: -ACETAMINOPHEN TAB 500 MG TAB PO ONE; +HYDROmorphone 0.5 MG/0.5 ML SYRINGE IVP PRN; +LIDOCAINE 1% (10MG/ML) FOR IV START INTRADERMA PRN; -MELOXICAM 7.5 MG TAB PO ONE; -ONDANSETRON 4 MG/2 ML VIAL IVP ONE; -ROPIVACAINE 246.25 MG, EPINEPHrine 0.5 MG, KETOROLAC 30 MG, cloNIDine HCL/PF 80 MCG, WA... MISCELLANE ONE; -TRANEXAMIC ACID 1,000 MG in SODIUM CHLORIDE 0.9% 100 ML IVPB ONE; +fentaNYL (PF) 50 MCG/ML 2 ML AMP IVP PRN
[2024-07-02] MEDS: IV FLUID CONTINUATION 1,000 ML IV ONE (14:54)
[2024-07-02 14:57] VITALS: TEMP 97
[2024-07-02] MEDS: GENTAMICIN 40 MG/ML 2 ML VIAL IM PRN (14:59)
[2024-07-02] MEDS: ONDANSETRON 4 MG/2 ML VIAL IVP ONE (15:06)
[2024-07-02] MEDS: LACTATED RINGERS 1,000 ML IV SCH (15:06)
[2024-07-02] MEDS: DEXAMETHASONE SOD PHOSPHATE 4 MG/ML 1 ML VIAL IV ONE (15:07)
[2024-07-02] MEDS ORDERED: PROPOFOL 10 MG/ML 20 ML VIAL IV ONE (15:48)
--- NOTE | 2024-07-02 16:08 | P.OP ---
Date of Procedure: 07/02/24 Preoperative Diagnosis: Elevated PSA level Postoperative Diagnosis: Same Procedure(s) Performed: Transrectal ultrasound-guided MRI fusion biopsies of the prostate Anesthesia: MAC Surgeon: Nain Carvajal Estimated Blood Loss (ml): 5 IV fluids (ml): 200 Pathology: other (Prostate biopsies) Condition: stable Disposition: PACU Indications for Procedure: The patient is a 64-year-old white male with a family history of prostate cancer (father and brother). His PSA level has been elevated for more than 1 year and was most recently 8.39. NGA revealed the prostate to be mildly enlarged, with right sided asymmetry but no nodularity. Prostate MRI reveals a prostate volume of 76.4 cc, with a PI-RADS 5 lesion noted within the left peripheral zone. Operative Findings: 3 biopsies obtained from left peripheral zone target lesion, in addition to 12 template biopsies. Description of Procedure: The patient was taken to the operating room and placed in the left lateral decubitus position. NGA revealed the prostate to be mildly enlarged but smooth. The [place] transrectal ultrasound probe was placed intrarectally. It was then placed within the stand of the [facility] MRI/TRUS Fusion for Prostate Biopsy s [facility]. The prostate was imaged in both the axial and sagittal planes, revealing a prostate volume of 47 mL. Using the Biopty gun, 3 biopsies were obtained from the left peripheral zone target lesion. The remaining 12 biopsies of the peripheral zone were obtained utilizing a standard template. Once the procedure was completed, the ultrasound probe was removed. The patient tolerated the procedure well was taken to the recovery room stable condition.
[2024-07-02 16:29] VITALS: BP 112/77; PULSE 62; RESP 16
== END 2024-07-02 16:43 | disposition home or self-care (01) ==
LOC: OR 13:09
PROVIDERS: ATTEND Urology
DX: N41.0 Acute prostatitis (principal); N41.1 Chronic prostatitis; N40.1 Benign prostatic hyperplasia with lower urinary tract symptoms; R35.0 Frequency of micturition; Z87.891 Personal history of nicotine dependence; Z79.899 Other long term (current) drug therapy; Z80.42 Family history of malignant neoplasm of prostate; Z88.5 Allergy status to narcotic agent
CPT/HCPCS: 55700; 88305; J1580; J1100; J2405; J2704

== ENCOUNTER 2024-08-13 06:08 | Day surgery (SDC) | payer BC ==
--- NOTE | 2024-08-12 21:28 | P.GSHP ---
History of Present Illness H&P Date: 08/12/24 Chief Complaint: Incomplete bladder emptying The patient is a 64-year-old white male with a rising PSA level which was most recently 8.39. His father and brother both have a history of prostate cancer. Prostate ultrasound in October 2023 showed a prostate volume of 42.4 cc, with protrusion of the median lobe intravesically. 12 biopsies were obtained, showing no evidence of malignancy. His PSA level at that time was 7.27. Because the PSA level desiree to 8.39 in March 2024, prostate MRI was obtained revealing a prostate volume of 76.4 cc with a PI-RADS 5 lesion was seen within the left peripheral zone. MRI fusion biopsies were negative. His measured prostate volume at that time was 47 cc. His postvoid residual is 428 cc despite taking tamsulosin. He was offered the option of continued medical therapy versus transurethral resection of the prostate. He has chosen the latter and comes for this reason. - Genitourinary (Male) Genitourinary: Reports as per HPI Past Medical History Past Medical History: Osteoarthritis (OA) Additional Past Medical History / Comment(s): Chronic bilateral knees pain, BPH History of Any Multi-Drug Resistant Organisms: None Reported Past Surgical History: Joint Replacement, Orthopedic Surgery Additional Past Surgical History / Comment(s): edwina knee ACL and edwina rotator cuffs, BILAT TKA, COLONOSCOPY, Lt. ankle fusion Past Anesthesia/Blood Transfusion Reactions: No Reported Reaction Smoking Status: Former smoker - Past Family History Father Family Medical History: Cancer Additional Family Medical History / Comment(s): passed in his 30's Mother Family Medical History: Cancer, CVA/TIA Medications and Allergies Home Medications Medication Instructions Recorded Confirmed Type Tamsulosin [Flomax] 1 tab PO HS 06/30/24 08/10/24 History Allergies Allergy/AdvReac Type Severity Reaction Status Date / Time acetaminophen [From [place]] Allergy Rash/Hives Verified 08/10/24 14:47 hydrocodone [From [place]] Allergy Rash/Hives Verified 08/10/24 14:47 Surgical - Exam - General well developed, well nourished, no distress - Respiratory normal respiratory effort - Abdomen Abdomen: soft, non tender, no guarding, no rigid, no rebound - Genitourinary normal penis with no external lesions, testicles non-tender - Rectum Rectum: normal sphincter tone, no masses, other (Prostate moderately enlarged, R>L, no nodule) - Psychiatric oriented to time, oriented to person, oriented to place, speech is normal, memory intact Assessment and Plan (1) Benign prostatic hyperplasia with lower urinary tract symptoms Status: Acute Code(s): N40.1 - BENIGN PROSTATIC HYPERPLASIA WITH LOWER URINARY TRACT SYMP SNOMED Code(s): 469200110 Plan: Cystoscopy, bipolar transurethral resection of prostate (TURP). The procedure has been reviewed in detail with the patient. He has been made aware of potential risks, which include anesthesia, bleeding, infection, vesical neck contracture, urinary incontinence, erectile dysfunction, and retrograde ejaculation. He is also aware of the possibility that he will be found to have prostate cancer.
[2024-08-13] MEDS: IV FLUID CONTINUATION 1,000 ML IV ONE (06:49)
[2024-08-13] MEDS: LACTATED RINGERS 1,000 ML IV SCH (06:49)
[2024-08-13] MEDS: DEXAMETHASONE SOD PHOSPHATE 4 MG/ML 1 ML VIAL IV ONE (06:56)
[2024-08-13] MEDS: ONDANSETRON 4 MG/2 ML VIAL IVP ONE (06:56)
[2024-08-13] MEDS ORDERED: fentaNYL (PF) 50 MCG/ML 2 ML AMP IV PRN (07:00)
[2024-08-13] MEDS ORDERED: fentaNYL (PF) 50 MCG/ML 2 ML AMP ONE (07:23)
[2024-08-13] MEDS ORDERED: KETOROLAC 15 MG/ML 1 ML VIAL ONE (07:23)
[2024-08-13] MEDS ORDERED: FUROSEMIDE 10 MG/ML 2 ML VIAL ONE (07:23)
[2024-08-13] MEDS ORDERED: SUCCINYLCHOLINE CHLORIDE 200 MG/10 ML VIAL IV ONE (07:23)
[2024-08-13] MEDS ORDERED: MIDAZOLAM 2 MG/2 ML VIAL ONE (07:23)
[2024-08-13] MEDS ORDERED: HYDROmorphone (PF) 1 MG/ML ONE (07:23)
[2024-08-13] MEDS ORDERED: PROPOFOL 10 MG/ML 20 ML VIAL IV ONE (07:23)
[2024-08-13] MEDS ORDERED: PHENYLEPHRINE 10 MG/ML VIAL ONE (07:23)
[2024-08-13] MEDS ORDERED: LIDOCAINE 1% INJ 10MG/ML (20 ML MDV) ONE (07:23)
[2024-08-13 10:32] VITALS: TEMP 98.3
--- NOTE | 2024-08-13 10:35 | P.OP ---
Date of Procedure: 08/13/24 Preoperative Diagnosis: BPH with obstruction Postoperative Diagnosis: Same Procedure(s) Performed: Cystoscopy, bipolar transurethral resection of prostate (TURP) Anesthesia: [place]VAR[place] Surgeon: Nain Carvajal Estimated Blood Loss (ml): 100 IV fluids (ml): 1,300 Pathology: other (Prostate chips) Condition: stable Disposition: PACU Indications for Procedure: The patient is a 64-year-old white male with a rising PSA level which was most recently 8.39. His father and brother both have a history of prostate cancer. Prostate ultrasound in October 2023 showed a prostate volume of 42.4 cc, with protrusion of the median lobe intravesically. 12 biopsies were obtained, showing no evidence of malignancy. His PSA level at that time was 7.27. Because the PSA level desiree to 8.39 in March 2024, prostate MRI was obtained revealing a prostate volume of 76.4 cc with a PI-RADS 5 lesion was seen within the left peripheral zone. MRI fusion biopsies were negative. His measured prostate volume at that time was 47 cc. His postvoid residual is 428 cc despite taking tamsulosin. He was offered the option of continued medical therapy versus transurethral resection of the prostate. He has chosen the latter and comes for this reason. Operative Findings: Trilobar BPH, completely obstructing. Description of Procedure: The patient was taken in the operating room and placed in the dorsolithotomy position. The external genitalia was prepped and draped sterilely. The 25- Macedonian [employer] resectoscope sheath was introduced into the bladder. The bladder was inspected. The ureteral orifice ease were obscured by a large intravesical median lobe. No tumors or foreign bodies were seen. Examination of the prostate revealed complete obstruction with a trilobar configuration. Using the bipolar cutting loop, the median lobe was resected down to the vesical neck fibers, and the floor of the prostate was resected up to the verumontanum. Next, each of the lateral lobes were resected down to the surgical capsule. The verumontanum was poorly defined, and the apex appeared to extend beyond the verumontanum bilaterally. The anterior tissue was resected, leaving an open prostatic fossa other than some residual apical tissue. It was difficult to achieve excellent hemostasis, and the prostatic fossa was carefully examined. A bleeder was identified and cauterized on the right side. However, ongoing bleeding was noted and it was difficult to identify the source of this. It was apparent that there was residual apical tissue. Some of this apical tissue was carefully resected, and this resulted in improved hemostasis. Still, resection of the apical tissue was incomplete to preserve the external urinary sphincter. The resectoscope was withdrawn into the bulbous urethra, and the external urinary sphincter was confirmed to be intact. The [employer]ores[employer]ience evacuator was used to remove all prostatic chips from the bladder. These were saved and sent for pathologic examination. The resectoscope was removed, and a 20 Macedonian, 3-Way Pagan catheter was placed. The return was pink. The irrigation port was plugged. 10 mg of Lasix was given intravenously. The patient tolerated the procedure well was taken to the recovery room in stable condition.
[2024-08-13] MEDS: HYDROmorphone 0.5 MG/0.5 ML SYRINGE IVP STA (10:40)
[2024-08-13] MEDS: ACETAMINOPHEN IV (For NPO) 1,000 MG in EMPTY BAG 1 BAG IVPB STA (11:39)
[2024-08-13 12:08] VITALS: RESP 16
[2024-08-13 12:12] VITALS: BP 105/67; PULSE 64
== END 2024-08-13 12:43 | disposition home or self-care (01) ==
LOC: OR 06:08
PROVIDERS: ATTEND Urology
DX: N40.1 Benign prostatic hyperplasia with lower urinary tract symptoms (principal); N13.8 Other obstructive and reflux uropathy; R39.14 Feeling of incomplete bladder emptying; Z79.899 Other long term (current) drug therapy; Z87.891 Personal history of nicotine dependence; Z80.42 Family history of malignant neoplasm of prostate; Z88.5 Allergy status to narcotic agent
CPT/HCPCS: 52601; J2250; J0330; J1100; J1940; J0690; J2405; J2003; J3010; J1171 ×2; J0131; J1885; J2704; J2371; 88305